=== PATIENT | male | born 1965 | race Caucasian/White ===

== ENCOUNTER 2022-05-02 15:54 | Outpatient (CLI) | payer OTHER ==
--- NOTE | 2022-05-11 07:51 | XRAY Report ---
PROCEDURE: Chest 2 View X-Ray INDICATIONS: COUGH TECHNIQUE: 2 views of the chest were acquired. COMPARISON: None FINDINGS: Surgical changes and devices: None. Lungs and pleura: No pleural effusions or pneumothorax. Lungs are clear, aside from a sub-5 mm left lower lobe calcified granuloma. Mediastinum: Mediastinal contours are normal. Heart size is normal. Bones and chest wall: No suspicious bony abnormalities. Soft tissues appear unremarkable. IMPRESSION: 1. No source for cough identified radiographically. 2. 7 5 mm left lower lobe calcified granuloma. Reviewed by: SONG Angeles on 05/11/2022 7:50 AM PST Approved by: Greer Barroso MD on 05/11/2022 7:50 AM PST Station ID: [id number]
== END 2022-05-02 23:59 | disposition home or self-care (01) ==
LOC: DI.N 15:54
PROVIDERS: ATTEND Registered Nurse
DX: R05.1 Acute cough (principal); J84.10 Pulmonary fibrosis, unspecified